=== PATIENT | female | born 1955 | race Caucasian/White ===

== ENCOUNTER → 2020-06-09 | Outpatient (CLI) | payer MEDICARE, OTHER | LOC: HEART 5 06-02 11:00 | DX: C50.411 Malignant neoplasm of upper-outer quadrant of right female breast (principal); I08.1 Rheumatic disorders of both mitral and tricuspid valves | CPT/HCPCS: 93306 ==

== ENCOUNTER → 2022-02-08 | Outpatient (CLI) | payer MEDICARE, OTHER | LOC: EXRD 09:30 | DX: C50.411 Malignant neoplasm of upper-outer quadrant of right female breast (principal); I10 Essential (primary) hypertension; R19.7 Diarrhea, unspecified; Z80.3 Family history of malignant neoplasm of breast | CPT/HCPCS: 77080 ==